=== PATIENT | female | born 1995 | race Caucasian/White ===

== ENCOUNTER 2017-05-29 19:09 | Emergency (ER) | payer SELFPAY | END 2017-05-29 21:20 | disposition left against medical advice (07) | LOC: ED 19:09 | DX: Z53.21 Procedure and treatment not carried out due to patient leaving prior to being seen by health care provider (principal) ==

== ENCOUNTER 2019-05-13 20:19 | Emergency (ER) | payer MEDICAID ==
[~2019-05-13] VITALS: Ht 147.3 cm; Wt 83.7 kg
[2019-05-13 20:41] VITALS: BP 115/712; Ht 147.3 cm; Wt 83.7 kg
== END 2019-05-13 21:12 | disposition home or self-care (01) ==
LOC: ED 20:19
DX: O90.0 Disruption of cesarean delivery wound (principal)